=== PATIENT | female | born 1995 | race Hispanic/Latino ===

== ENCOUNTER 2018-04-21 22:55 | Emergency (ER) | payer BC ==
[2018-04-21] MEDS ORDERED: NA CHLORIDE 0.9% 1,000 ML ONE (23:24)
[2018-04-22 00:02] LABS: Absolute Lymphocytes (CBC) 2.9 K/uL (0.7-4.9); Absolute Monocytes 0.8 K/uL (0.1-1.3); Absolute Neutrophil 12.7 K/uL (1.8-8.0); Basophils % 0.6 % (0-1.3); Eosinophils % 0.5 % (0-4.4); Hematocrit 35.2 % (36.0-45.0); Lymphocytes % 17.4 % (15.3-44.8); MCH 27.3 pg (27.0-35.0); MCV 83.2 fL (80-100); MPV 8.5 fL (7.6-11.3); Monocytes % 4.6 % (3.3-12.3); RBC Red Blood Cell Count 4.24 M/uL (3.86-4.86)
[2018-04-22 00:22] LABS: BUN Blood Urea Nitrogen 4 mg/dL (7-18); Bicarbonate 22 mmol/L (21-32); Glucose Level 96 mg/dL (74-106); Potassium 3.4 mmol/L (3.5-5.1); Sodium Level 146 mmol/L (136-145)
[2018-04-22 00:24] LABS: Urine Blood TRACE (NEG); Urine Glucose NEGATIVE (NEG); Urine Protein NEGATIVE (NEG)
[2018-04-22] MEDS ORDERED: ROCURONIUM 50 MG/5 ML VIAL IV ONE (00:46)
[2018-04-22] MEDS ORDERED: NITROFURAN MACRO 100 MG CAP PO ONE (00:48)
[2018-04-22 01:03] LABS: HCG, Quantitative 7617 mIU/mL (1-3)
--- NOTE | 2018-04-22 01:12 | ER ---
Nurse's Notes [facility] Name: Edilma Ambrosio Age: 22 yrs Sex: Female : 1995 Arrival Date: 04/21/2018 Time: 22:58 Bed 13 Private MD: Diagnosis: Cystitis; related conditions, unspecified, second trimester;Hypokalemia Presentation: 04/21 23:09 Presenting complaint: Patient states: decreased movement since 2100 04/20/18. pt ak1 19 weeks and went to L\T\D, was sent back down to ER with no monitoring. pt c/o back pain. pt denies vaginal bleeding, denies any vaginal discharge. Transition of care: patient was not received from another setting of care. Onset of symptoms is unknown. 23:09 Method Of Arrival: Ambulatory ak1 04/22 00:00 Risk Assessment: Do you want to hurt yourself or someone else? Patient reports no ao desire to harm self or others. Initial Sepsis Screen: Does the patient meet any 2 criteria? No. Patient's initial sepsis screen is negative. Does the patient have a suspected source of infection? No. Patient's initial sepsis screen is negative. Care prior to arrival: None. 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 - Social history:: Smoking status: Patient/guardian denies using tobacco. - Ebola Screening: : No symptoms or risks identified at this time. - Family history:: not pertinent. Screenin/02 00:00 Abuse screen: Denies threats or abuse. Denies injuries from another. Nutritional ao screening: No deficits noted. Tuberculosis screening: No symptoms or risk factors identified. Fall Risk None identified. Assessment: 04/21 23:30 General: Appears in no apparent distress. comfortable, Behavior is calm, cooperative, ao appropriate for age. Pain: Denies pain. Neuro: Level of Consciousness is awake, alert, obeys commands, Oriented to person, place, time, situation, Appropriate for age Moves all extremities. Speech is normal, Facial symmetry appears normal. Cardiovascular: Capillary refill < 3 seconds Patient's skin is warm and dry. Respiratory: Airway is patent Respiratory effort is even, unlabored, Respiratory pattern is regular, symmetrical. GI: Abdomen is round. : No signs and/or symptoms were reported regarding the genitourinary system. EENT: No signs and/or symptoms were reported regarding the EENT system. Derm: Skin is intact, Skin is pink, warm \T\ dry. Skin temperature is warm. Musculoskeletal: No signs and/or symptoms reported regarding the musculoskeletal system. 04/22 00:22 Reassessment: Patient appears in no apparent distress at this time. Patient and/or ao family updated on plan of care and expected duration. Pain level reassessed. Patient is alert, oriented x 3, equal unlabored respirations, skin warm/dry/pink. Vital Signs: 04/21 23:11 BP 124 / 75; Pulse 107; Resp 18; Temp 98.4; Pulse Ox 99% on R/A; Weight 98.43 kg (R); ak1 Height 5 ft. 4 in. (162.56 cm) (R); Pain 6/10; 04/22 00:22 BP 118 / 72; Pulse 102; Resp 16; Pulse Ox 99% on R/A; ao 01:34 BP 122 / 74; Pulse 98; Resp 16; Pulse Ox 100% on R/A; Pain 0/10; ao 07 23:11 Body Mass Index 37.25 (98.43 kg, 162.56 cm) ak1 ED Course: 04/21 22:58 Patient arrived in ED. es 23:11 Arm band placed on Patient placed in an exam room, on a stretcher, on pulse oximetry, ak1 Patient notified of wait time. 23:13 Ryland Duarte MD is Attending Physician. mango 23:20 Fransisco Upton, JAZLYN is Primary Nurse. ao 04/22 00:01 Triage completed. ao 00:01 Patient has correct armband on for positive identification. Pulse ox on. NIBP on. ao 00:10 Inserted saline lock: 20 gauge in right antecubital area, using aseptic technique. ao Blood collected. 00:36 US OB Complete In Process Unspecified. EDMS 01:12 Adam Dexter MD is Referral Physician. mango 01:33 No provider procedures requiring assistance completed. IV discontinued, intact, ao bleeding controlled, No redness/swelling at site. Pressure dressing applied. Administered Medications: 04/21 23:58 Drug: NS 0.9% 1000 ml Route: IV; Rate: 1 bolus; Site: right antecubital; ao 04/22 01:50 Follow up: IV Status: Completed infusion; IV Intake: 1000ml ao 00:50 Drug: Rocephin - (cefTRIAXone) 1 grams Route: IVPB; Infused Over: 30 mins; Site: right ao antecubital; 01:30 Follow up: Response: No adverse reaction; IV Status: Completed infusion; IV Intake: 10mlao 00:50 Drug: Macrobid 100 mg Route: PO; ao 01:20 Follow up: Response: No adverse reaction ao Intake: 01:30 IV: 10ml; Total: 10ml. ao 01:50 IV: 1000ml; Total: 1010ml. ao Outcome: 01:12 Discharge ordered by . mango 01:33 Discharged to home ambulatory. ao 01:33 Condition: stable 01:33 Discharge instructions given to patient, Instructed on discharge instructions, follow up and referral plans. Demonstrated understanding of instructions, follow-up care, medications, Prescriptions given X 2. 01:35 Patient left the ED. ao Signatures: Dispatcher [employer] Ryland Franklin MD MD cha Salyer, Ariane Murray RN RN ak1 Fransisco Upton RN RN ao Corrections: (The following items were deleted from the chart) 04/21 23:14 23:11 LMP 12/06/2017 sonia scott
--- NOTE | 2018-04-22 01:12 | EDPHYS ---
Physician Documentation [facility] Name: Edilma Ambrosio Age: 22 yrs Sex: Female : 1995 Arrival Date: 04/21/2018 Time: 22:58 Bed 13 Private MD: ED Physician Ryland Duarte HPI: 04/22 00:42 This 22 yrs old Female presents to ER via Ambulatory with complaints of mango DECREASED MOVEMENT. 00:42 The patient presents with pelvic pain, urinary symptoms, frequency. Onset: The mango symptoms/episode began/occurred 2 day(s) ago. Modifying factors: The symptoms are alleviated by nothing, the symptoms are aggravated by nothing. Associated signs and symptoms: The patient has no apparent associated signs or symptoms. Severity of symptoms: At their worst the symptoms were mild, in the emergency department the symptoms are unchanged. The patient presents to the emergency department with elevated blood pressure. The estimated gestational age is 20 weeks. The patient is not sexually active. 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 - Social history:: Smoking status: Patient/guardian denies using tobacco. - Ebola Screening: : No symptoms or risks identified at this time. - Family history:: not pertinent. ROS: 04/22 00:42 Constitutional: Negative for fever, chills, and weight loss, Eyes: Negative for injury, mango pain, redness, and discharge, ENT: Negative for injury, pain, and discharge, Neck: Negative for injury, pain, and swelling, Cardiovascular: Negative for chest pain, palpitations, and edema, Respiratory: Negative for shortness of breath, cough, wheezing, and pleuritic chest pain, Abdomen/GI: Negative for abdominal pain, nausea, vomiting, diarrhea, and constipation, Back: Negative for injury and pain, MS/Extremity: Negative for injury and deformity, Skin: Negative for injury, rash, and discoloration, Neuro: Negative for headache, weakness, numbness, tingling, and seizure, Psych: Negative for depression, anxiety, suicide ideation, homicidal ideation, and hallucinations, Allergy/Immunology: Negative for hives, rash, and allergies, Endocrine: Negative for neck swelling, polydipsia, polyuria, polyphagia, and marked weight changes, Hematologic/Lymphatic: Negative for swollen nodes, abnormal bleeding, and unusual bruising. : Positive for urinary frequency, hematuria, burning with urination. Exam: 00:42 Constitutional: This is a well developed, well nourished patient who is awake, alert, mango and in no acute distress. Head/Face: Normocephalic, atraumatic. Eyes: Pupils equal round and reactive to light, extra-ocular motions intact. Lids and lashes normal. Conjunctiva and sclera are non-icteric and not injected. Cornea within normal limits. Periorbital areas with no swelling, redness, or edema. ENT: Nares patent. No nasal discharge, no septal abnormalities noted. Tympanic membranes are normal and external auditory canals are clear. Oropharynx with no redness, swelling, or masses, exudates, or evidence of obstruction, uvula midline. Mucous membranes moist. Neck: Trachea midline, no thyromegaly or masses palpated, and no cervical lymphadenopathy. Supple, full range of motion without nuchal rigidity, or vertebral point tenderness. No Meningismus. Chest/axilla: Normal chest wall appearance and motion. Nontender with no deformity. No lesions are appreciated. Cardiovascular: Regular rate and rhythm with a normal S1 and S2. No gallops, murmurs, or rubs. Normal PMI, no JVD. No pulse deficits. Respiratory: Lungs have equal breath sounds bilaterally, clear to auscultation and percussion. No rales, rhonchi or wheezes noted. No increased work of breathing, no retractions or nasal flaring. Back: No spinal tenderness. No costovertebral tenderness. Full range of motion. Female : Normal external genitalia. Skin: Warm, dry with normal turgor. Normal color with no rashes, no lesions, and no evidence of cellulitis. MS/ Extremity: Pulses equal, no cyanosis. Neurovascular intact. Full, normal range of motion. Neuro: Awake and alert, GCS 15, oriented to person, place, time, and situation. Cranial nerves II-XII grossly intact. Motor strength 5/5 in all extremities. Sensory grossly intact. Cerebellar exam normal. Normal gait. Psych: Awake, alert, with orientation to person, place and time. Behavior, mood, and affect are within normal limits. 00:42 Abdomen/GI: Inspection: distension, gravid appearance, Bowel sounds: normal, Palpation: abdomen is soft and non-tender, Liver: no appreciated palpable abnormalities, Hernia: not appreciated. Vital Signs: 04/21 23:11 BP 124 / 75; Pulse 107; Resp 18; Temp 98.4; Pulse Ox 99% on R/A; Weight 98.43 kg (R); ak1 Height 5 ft. 4 in. (162.56 cm) (R); Pain 6/10; 04/22 00:22 BP 118 / 72; Pulse 102; Resp 16; Pulse Ox 99% on R/A; ao 01:34 BP 122 / 74; Pulse 98; Resp 16; Pulse Ox 100% on R/A; Pain 0/10; ao 04/21 23:11 Body Mass Index 37.25 (98.43 kg, 162.56 cm) ak1 MDM: 04/21 23:13 Patient medically screened. [facility] 04/21 23:19 Order name: Quantitative Hcg [facility] 04/21 23:19 Order name: Abo/rh Typing; Complete Time: 00:40 [facility] 04/21 23:19 Order name: Basic Metabolic Panel; Complete Time: 01:03 [facility] 04/21 23:19 Order name: CBC with Diff; Complete Time: 00:40 [facility] 04/21 23:19 Order name: Urine Culture [facility] 04/21 23:19 Order name: HCG, Quantitative; Complete Time: 01:03 EDMS 04/21 23:19 Order name: Urine Test (obtain specimen); Complete Time: 23:58 [facility] 04/21 23:19 Order name: IV Saline Lock; Complete Time: 23:58 [facility] 04/22 00:18 Order name: Urine Dipstick--Ancillary (enter results); Complete Time: 00:40 eb 04/22 00:18 Order name: Urine --Ancillary (enter results); Complete Time: 00:40 eb 04/21 23:19 Order name: Labs collected and sent; Complete Time: 23:58 [facility] 04/21 23:19 Order name: NPO; Complete Time: 23:58 [facility] 04/21 23:19 Order name: Urine Dipstick-Ancillary (obtain specimen); Complete Time: 23:59 [facility] 04/22 01:04 Order name: PO challenge: juice x1; Complete Time: 01:10 mango Administered Medications: 23:58 Drug: NS 0.9% 1000 ml Route: IV; Rate: 1 bolus; Site: right antecubital; ao 04/22 01:50 Follow up: IV Status: Completed infusion; IV Intake: 1000ml ao 00:50 Drug: Rocephin - (cefTRIAXone) 1 grams Route: IVPB; Infused Over: 30 mins; Site: right ao antecubital; 01:30 Follow up: Response: No adverse reaction; IV Status: Completed infusion; IV Intake: 10mlao 00:50 Drug: Macrobid 100 mg Route: PO; ao 01:20 Follow up: Response: No adverse reaction ao Disposition: 04/22/18 01:12 Discharged to Home. Impression: Cystitis, related conditions, unspecified, second trimester, Hypokalemia. - Condition is Stable. - Discharge Instructions: Dysuria, and Urinary Tract Infection, Pelvic Rest, Second Trimester of , [id number], Hypokalemia. - Prescriptions for Vitamin 27- 0.8 mg Oral Tablet - take 1 tablet by ORAL route once daily; 60 tablet. Macrobid 100 mg Oral Capsule - take 1 capsule by ORAL route every 12 hours for 7 days; 14 capsule. - Medication Reconciliation Form, Thank You Letter, Antibiotic Education, Prescription Opioid Use form. - Follow up: Private Physician; When: 2 - 3 days; Reason: Recheck today's complaints, Continuance of care, Re-evaluation by your physician. Follow up: Adam Dexter; When: 2 - 3 days; Reason: Recheck today's complaints, Continuance of care, Re-evaluation by your physician. - Problem is new. - Symptoms have improved. Signatures: Dispatcher [employer] Ryland Franklin MD MD cha Krenek, Amber RN RN ak1 Fransisco Upton RN RN ao Corrections: (The following items were deleted from the chart) 01:12 01:12 04/22/2018 01:12 Discharged to Home. Impression: Cystitis; related mango conditions, unspecified, first trimester. Condition is Stable. Discharge Instructions: Dysuria, and Urinary Tract Infection, Pelvic Rest, Second Trimester of , [id number]. Prescriptions for Vitamin 27-0.8 mg Oral Tablet - take 1 tablet by ORAL route once daily; 60 tablet, Macrobid 100 mg Oral Capsule - take 1 capsule by ORAL route every 12 hours for 7 days; 14 capsule. and Forms are Medication Reconciliation Form, Thank You Letter, Antibiotic Education, Prescription Opioid Use. Follow up: Private Physician; When: 2 - 3 days; Reason: Recheck today's complaints, Continuance of care, Re-evaluation by your physician. Follow up: Adam Dexter; When: 2 - 3 days; Reason: Recheck today's complaints, Continuance of care, Re-evaluation by your physician. Problem is new. Symptoms have improved. mango 01:35 01:12 04/22/2018 01:12 Discharged to Home. Impression: Cystitis; related ao conditions, unspecified, second trimester; Hypokalemia. Condition is Stable. Discharge Instructions: Dysuria, and Urinary Tract Infection, Pelvic Rest, Second Trimester of , [id number]. Prescriptions for Vitamin 27-0.8 mg Oral Tablet - take 1 tablet by ORAL route once daily; 60 tablet, Macrobid 100 mg Oral Capsule - take 1 capsule by ORAL route every 12 hours for 7 days; 14 capsule. and Forms are Medication Reconciliation Form, Thank You Letter, Antibiotic Education, Prescription Opioid Use. Follow up: Private Physician; When: 2 - 3 days; Reason: Recheck today's complaints, Continuance of care, Re-evaluation by your physician. Follow up: Adam Dexter; When: 2 - 3 days; Reason: Recheck today's complaints, Continuance of care, Re-evaluation by your physician. Problem is new. Symptoms have improved. mango
[2018-04-22 01:47] VITALS: TEMP 98.4
[2018-04-22 01:49] VITALS: BP 122/74; O2SAT 100
--- NOTE | 2018-04-22 10:04 | RAD REPORT ---
EXAM DESCRIPTION: US - OB Limited - 04/22/2018 9:26 am CLINICAL HISTORY: Abdominal pain, abdominal cramping, Preliminary findings provided at the time of the study. COMPARISON: April 15 FINDINGS: A single presenting gestation is identified. Heart rate normal. No gross anatomic abnormal ities are identifiable. Amniotic fluid volume is normal. Placenta is posterior with no low-lying or placenta previa. No abrup tion. Cervical canal is 5.6 cm. Internal os is closed. No abnormality is seen along the cervical jacob l. Ovaries were not identifiable in the maternal adnexa. No free fluid or adnexal mass. IMPRESSION: 1. Single gestation with normal heart rate. No gross anatomic abnormality is seen. 2. No hematoma mass or suspicious intrauterine finding. 3. Posterior placenta shows no low-lying or placenta previa. No suspicious placental finding. 4. Amniotic fluid volume is normal.
== END 2018-04-22 01:35 | disposition home or self-care (01) ==
LOC: ER 22:55
DX: O23.12 Infections of bladder in pregnancy, second trimester (principal); E87.6 Hypokalemia; Z3A.19 19 weeks gestation of pregnancy
CPT/HCPCS: 36415; 76815; 80048; 81003; 81025; 84702; 85025; 86900; 86901; 87086; 87088; 96361; 96365; 99284; J7030

== ENCOUNTER 2018-09-03 05:55 | Inpatient (IN) | payer BC ==
[2018-09-03] MEDS ORDERED: Ringers Lactate 1,000 ML IV PRN (06:37)
[2018-09-03] MEDS ORDERED: METHYLERGONOVINE 0.2MG/ML AMP IM PRN ×2 (06:37→15:50)
[2018-09-03] MEDS ORDERED: CARBOPROST TROME 250 MCG/ML IM PRN ×2 (06:37→15:50)
[2018-09-03] MEDS ORDERED: PROMETHAZINE 25 MG/ML VIAL IV PRN (06:37)
[2018-09-03] MEDS ORDERED: BUTORPHANOL 1 MG/ML INJ IV PRN (06:37)
[2018-09-03 06:47] VITALS: BMI 42.9
[2018-09-03] MEDS ORDERED: OXYTOCIN/LR 20 UNIT/1,000 ML BAG IV SCH ×2 (07:00→16:00)
[2018-09-03] MEDS ORDERED: Ringers Lactate 1,000 ML IV SCH (07:00)
[2018-09-03 07:58] LABS: RPR Titer ND
[2018-09-03 08:00] LABS: Absolute Lymphocytes (CBC) 2.1 K/uL (0.7-4.9); Absolute Monocytes 0.6 K/uL (0.1-1.3); Absolute Neutrophil 9.7 K/uL (1.8-8.0); Basophils % 0.3 % (0-1.3); Eosinophils % 0.4 % (0-4.4); Lymphocytes % 16.5 % (15.3-44.8); MCH 29.8 pg (27.0-35.0); MCV 87.1 fL (80-100); MPV 8.2 fL (7.6-11.3); Monocytes % 4.9 % (3.3-12.3); RBC Red Blood Cell Count 4.24 M/uL (3.86-4.86)
--- NOTE | 2018-09-03 08:04 | P.PN ---
Date of Service: 09/03/18 FSE applied, clear fluid noted, cx 1cm, 50%, minus 2 station.
--- NOTE | 2018-09-03 08:41 | PREOPHP ---
Date of Admission: 09/03/2018 History: Ms. Ambrosio is a 22-year-old single female, 2, para 1-0-0-1, now at appro ximately 39 weeks gestation. She has been followed by me during this with a mildly abnorma l Pap and mild anemia. She would like to be induced. Infant has been active. She denies any other complaints. Past Medical History: Please see record. Family History: Please see record. Review of Systems: She reports no recent cough, cold, fever, chills. No recent nausea or vomiting. She denies any janine st lumps or breast knots. She denies any bowel or bladder issues. Infant has been active. Physical Examination: General: Obese female, in no apparent distress. Neck: Supple without adenopathy or thyromegaly. Lungs: Clear. Cardiac Exam: Regular rate and rhythm without murmurs. Breasts: Not examined. Abdomen: Estimated weight is 7+ pounds. Pelvic: Cervix noted to be 1 cm, 50%, vertex presentation, and -1 to -2 station. Extremities: No cyanosis, clubbing, or edema. Impression: Thirty-nine week . Plan: The patient will be induced tomorrow. YURY/MERARI Voice ID: [id number]
[2018-09-03] MEDS ORDERED: FENTANYL CITR 100 MCG/2 ML IV ONE (09:19)
[2018-09-03] MEDS ORDERED: BUPIVACAINE 0.25% PF 30 ML VIAL IV ONE (10:01)
[2018-09-03] MEDS ORDERED: BUPIVACAINE 0.25% PF 10 ML VIAL ONE (10:15)
[2018-09-03] MEDS ORDERED: FENTANYL/BUPIVACAINE/NS/PF 200 MCG/100 ML BAG EP ONE (10:17)
[2018-09-03] MEDS ORDERED: ROPIVACAINE HCL 100 ML IV ONE (11:35)
[2018-09-03 12:16] LABS: Urine Appearance CLOUDY; Urine Bilirubin NEGATIVE (NEG); Urine Blood 2+ (NEG); Urine Color YELLOW; Urine Glucose NEGATIVE (NEG); Urine Protein NEGATIVE (NEG); Urine Specific Gravity 1.015 (1.005-1.030); Urine Urobilinogen 0.2 mg/dL (0.2-1.0); Urine pH 6.5 (5.0-7.0)
[2018-09-03 12:24] LABS: Urine Microscopic Reflex ORDER UMIC
[2018-09-03 12:32] LABS: Urine Bacteria >50 /HPF (<20); Urine Culture Reflex Order NOT NEEDED; Urine Mucus MOD /HPF (NONE SEEN)
[2018-09-03] MEDS ORDERED: LIDOCAINE 1% MPF 30 ML VIAL SQ ONE (14:20)
[2018-09-03] MEDS ORDERED: METHYLERGONOVINE 0.2 MG TAB PO PRN (15:50)
--- NOTE | 2018-09-03 15:52 | P.BOP ---
Preoperative diagnosis: 39 week Postoperative diagnosis: same Primary procedure: SCVD viable female infant Estimated blood loss: <300ml Anesthesia: epdidural Complications: None Transferred to: Other (274) Condition: Good
[2018-09-03] MEDS: IBUPROFEN 200 MG TAB PO PRN (18:43)
[2018-09-03 19:40] LABS: RPR (Rapid Plasma Reagin) NON-REACT (NON-REACT)
[2018-09-03] MEDS: ACETAMINOPHEN 500 MG TAB PO PRN (19:45)
[2018-09-04] MEDS: IBUPROFEN 200 MG TAB PO PRN ×2 (00:19→07:24)
[2018-09-04] MEDS: ACETAMINOPHEN 500 MG TAB PO PRN (03:52)
[2018-09-04 16:01] VITALS: BP 123/71; TEMP 97.9
--- NOTE | 2018-09-04 18:00 | HP ---
Date of Admission: 09/03/2018 History Of Present Illness: Ms. Ambrosio is a 22-year-old, single, female, 2, para 1-0-0-1, at 39 weeks gestation, admitted for induction of labor. She was 1 cm, 50% effaced on admiss ion. scalp electrode placed, accomplishing rupture of membrane. She had a first stage of labo r of 8 hours and 21 minute, second stage of labor of 15 minutes. She delivered with by spontaneous c ontrolled vaginal delivery, a 7 pounds 3 ounce female , 8, 9, over intact perineum with e pidural anesthesia. The was delivered after delayed cord clamping. The cord was clamped, cut , and the infant placed on mother's upper abdomen. Cord blood was obtained. Placenta was spontaneou sly expelled and appeared to be intact. Intrauterine examination revealed no retained placental frag ments. No lacerations were noted. The patient delivered without difficulty. YURY/MERARI Voice ID: [id number]
--- NOTE | 2018-09-04 18:00 | DS ---
Date of Discharge: 09/04/2018 Final Hospital Discharge Diagnoses: 39 week , delivered. Complications: None. Procedures: Artificial rupture of membranes, Pitocin induction of labor, placement of epidural emely ter, spontaneous controlled vaginal delivery of viable female infant. Hospital Course: The patient is a 22-year-old, single, female, 2, para 1-0-0-1, at 39 weeks gestation, who underwent elective induction. She delivered 7 pounds 3 ounce female, 8 , 9 with epidural anesthesia. She was dismissed on her first post day, ambulatory, on a selec t diet with routine post vaginal delivery activity restrictions. Lab work include admission hemoglob in and hematocrit of 12.7 and 37.0, dismissal hematocrit of 34.1. She is Rh-positive blood type. An tibody screen negative. She was dismissed to continue taking her iron and vitamins with usu al post vaginal delivery activity restrictions. YURY/MERARI Voice ID: [id number] Report ID: [id number]
[2018-09-06 19:03] LABS: HBsAG Nonreactive (Nonreactive)
== END 2018-09-04 17:30 | disposition home or self-care (01) | DRG 807 ==
LOC: 2ND-WC 05:55
PROVIDERS: ADMIT Specialist; ATTEND Specialist
PROC: 10E0XZZ Delivery of Products of Conception, External Approach (ICD-10-PCS; principal; 2018-09-03)
PROC: 3E033VJ Introduction of Other Hormone into Peripheral Vein, Percutaneous Approach (ICD-10-PCS; 2018-09-03)
PROC: 10907ZC Drainage of Amniotic Fluid, Therapeutic from Products of Conception, Via Natural or Artificial Opening (ICD-10-PCS; 2018-09-03)
PROC: 4A1H7CZ Monitoring of Products of Conception, Cardiac Rate, Via Natural or Artificial Opening (ICD-10-PCS; 2018-09-03)
PROC: 10H073Z Insertion of Monitoring Electrode into Products of Conception, Via Natural or Artificial Opening (ICD-10-PCS; 2018-09-03)
DX: O99.02 Anemia complicating childbirth (principal); Z37.0 Single live birth; D64.9 Anemia, unspecified; Z3A.39 39 weeks gestation of pregnancy
CPT/HCPCS: 36415; 81003; 81015; 85014; 85025; 86592; 86850; 86900; 86901; 87340; J2210; J2590; J2795; J3010

== ENCOUNTER 2021-08-29 14:09 | Emergency (ER) | payer BC, OTHER ==
[2021-08-29 14:35] LABS: Urine Blood Negative (Negative); Urine Glucose Negative (Negative); Urine Protein Negative (Negative); Urine Specific Gravity >=1.030 (1.005-1.030); Urine pH 5.5 (5.0-7.0)
[2021-08-29 14:39] LABS: Urine Specific Gravity/Preg >1.030 (1.005-1.030)
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
[2021-08-29] MEDS ORDERED: HYDROCODONE/APAP 7.5/325 MG TAB ONE (15:04)
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
[2021-08-29 15:24] VITALS: BP 119/72; TEMP 98; O2SAT 98
== END 2021-08-29 15:13 | disposition home or self-care (01) ==
LOC: ER 14:09
DX: M54.50 Low back pain, unspecified (principal); V49.40XA Driver injured in collision with unspecified motor vehicles in traffic accident, initial encounter
CPT/HCPCS: 72131; 81003; 81025; 99283

== ENCOUNTER 2022-02-21 03:28 | Observation (INO) | payer BC, SELFPAY ==
[2022-02-21] MEDS ORDERED: ASPIRIN 81 MG CHEWABLE TABLET ONE (03:57)
[2022-02-21] MEDS ORDERED: NA CHLORIDE 0.9% 1,000 ML ONE (03:57)
[2022-02-21 04:26] LABS: Absolute Lymphocytes (CBC) 3.6 K/uL (0.7-4.9); Hematocrit 33.9 % (36.0-45.0); Lymphocytes % 24.7 % (15.3-44.8); MPV 7.8 fL (7.6-11.3); RBC Red Blood Cell Count 4.04 M/uL (3.86-4.86)
[2022-02-21 04:37] LABS: ALT/SGPT 22 U/L (12-78); AST/SGOT 8 U/L (15-37); Alkaline Phosphatase 77 U/L (45-117); BUN Blood Urea Nitrogen 10 mg/dL (7-18); Bicarbonate 23 mmol/L (21-32); Bilirubin Total 0.1 mg/dL (0.2-1.0); Glucose Level 100 mg/dL (74-106); Lipase 41 U/L (73-393); Magnesium 1.9 mg/dL (1.8-2.4); NT PRO-BNP 85 pg/mL (<125); Potassium 3.7 mmol/L (3.5-5.1); Protein, Total 7.2 g/dL (6.4-8.2); Sodium Level 137 mmol/L (136-145); Troponin High Sensitivity 8.9 pg/mL (<58.9)
[2022-02-21 04:42] LABS: Bilirubin Direct < 0.1 mg/dL (0-0.2)
[2022-02-21 06:10] LABS: Urine Blood Negative (Negative); Urine Glucose Negative (Negative); Urine Protein Negative (Negative); Urine Specific Gravity 1.015 (1.005-1.030)
[2022-02-21 06:35] LABS: Urine Specific Gravity/Preg 1.015 (1.005-1.030)
--- NOTE | 2022-02-21 06:40 | ER ---
Nurse's Notes [facility] Name: Edilma Eng Age: 26 yrs Sex: Female : 1995 Arrival Date: 02/21/2022 Time: 03:30 Bed 5 Private MD: Diagnosis: Chest pain, unspecified;Chest pain on breathing;Pulmonary embolism without acute cor pulmonale Presentation: 02/21 03:44 Chief complaint: Patient states: "I am having chest pain and its just getting worse. It as6 started about 3 yesterday afternoon" pt says chest pain started in back and radiates to chest, pt says its a pressure and has no other symptoms. Coronavirus screen: At this time, the client does not indicate any symptoms associated with coronavirus-19. Ebola Screen: No symptoms or risks identified at this time. Initial Sepsis Screen: Does the patient meet any 2 criteria? No. Patient's initial sepsis screen is negative. Does the patient have a suspected source of infection? No. Patient's initial sepsis screen is negative. Risk Assessment: Do you want to hurt yourself or someone else? Patient reports no desire to harm self or others. Onset of symptoms was February 20, 2022 at 15:00. 03:44 Method Of Arrival: Ambulatory as6 03:44 Acuity: ENZO 3 as6 Triage Assessment: 03:50 General: Appears in no apparent distress. Behavior is calm, cooperative. Pain: as6 Complains of pain in chest Pain radiates to back Quality of pain is described as pressure. Neuro: Level of Consciousness is awake, alert, obeys commands, Oriented to person, place, time, situation. Cardiovascular: Reports chest pain, JVD is absent Patient's skin is warm and dry. Respiratory: Respiratory effort is even, unlabored, Respiratory pattern is regular, symmetrical. 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 - Social history:: Smoking status: Patient denies any tobacco usage or history of. Patient uses alcohol, occasionally. - Family history:: not pertinent. Screenin:50 Abuse screen: Denies threats or abuse. Denies injuries from another. Nutritional as6 screening: No deficits noted. Tuberculosis screening: No symptoms or risk factors identified. Fall Risk None identified. Assessment: 03:54 Reassessment: urine specimen cup at bedside, patient educated on the need for a sample. al4 04:04 Pain: Pain began 1 day ago. as6 06:10 Reassessment: Patient appears in no apparent distress at this time. Patient is alert, al4 oriented x 3, equal unlabored respirations, skin warm/dry/pink. 06:14 Reassessment: Patient and/or family updated on plan of care and expected duration. Pain as6 level reassessed. Patient states symptoms have improved. 07:15 General: Appears in no apparent distress. comfortable, Behavior is calm, cooperative. vg1 Pain: Denies pain. Neuro: [place] Agitation-Sedation Scale (RASS): 0 - Alert and Calm Level of Consciousness is awake, alert, obeys commands, Oriented to person, place, time, situation. Cardiovascular: Patient's skin is warm and dry. Respiratory: Airway is patent Respiratory effort is even, unlabored, Breath sounds are clear bilaterally. GI: No signs and/or symptoms were reported involving the gastrointestinal system. : No signs and/or symptoms were reported regarding the genitourinary system. EENT: No signs and/or symptoms were reported regarding the EENT system. Derm: Skin is intact, is healthy with good turgor. Musculoskeletal: Circulation, motion, and sensation intact. Vital Signs: 03:44 BP 131 / 80; Pulse 81 MON; Resp 17 S; Temp 98.5(O); Pulse Ox 98% on R/A; Weight 99.79 as6 kg (R); Height 5 ft. 3 in. (160.02 cm) (R); Pain 7/10; 05:00 BP 123 / 87; Pulse 75; Resp 17 S; Pulse Ox 100% on R/A; as6 06:15 BP 124 / 75; Pulse 77; Resp 22 S; Pulse Ox 100% on R/A; as6 07:00 BP 131 / 70; Pulse 68; Resp 16; Pulse Ox 100% on R/A; vg1 08:00 BP 115 / 91; Pulse 85; Resp 16; Pulse Ox 100% ; vg1 03:44 Body Mass Index 38.97 (99.79 kg, 160.02 cm) as6 ED Course: 03:30 Patient arrived in ED. kz 03:36 Ryland Duarte MD is Attending Physician. mango 03:40 John Odom, JAZLYN is Primary Nurse. as6 03:49 Triage completed. as6 03:49 Arm band placed on. EKG completed in triage. Results shown to MD. as6 03:51 Patient maintains SpO2 saturation greater than 95% on room air. as6 03:54 Placed in gown. Bed in low position. Call light in reach. Side rails up X 1. Adult w/ al4 patient. environmental monitoring technician on. Pulse ox on. NIBP on. 03:59 XRAY Chest (1 view) In Process Unspecified. EDMS 04:05 Inserted saline lock: 22 gauge in left antecubital area, using aseptic technique. Blood al4 collected. 04:10 Basic Metabolic Panel Sent. al4 04:10 CBC with Diff Sent. al4 04:10 D-Dimer Sent. al4 04:11 LFT's Sent. al4 04:11 Magnesium Sent. al4 04:11 NT PRO-BNP Sent. al4 04:11 Troponin HS Sent. al4 05:13 US Extremity Venous W Compression Prudencio In Process Unspecified. EDMS 05:49 CT Chest For PE Angio In Process Unspecified. EDMS 06:38 Kristin Díaz MD is Hospitalizing Provider. mango 08:00 No provider procedures requiring assistance completed. Patient admitted, IV remains in vg1 place. Administered Medications: 03:53 Drug: Aspirin Chewable Tablet 81 mg Route: PO; al4 04:53 Follow up: Response: No adverse reaction al4 04:07 Drug: NS 0.9% 1000 ml Route: IV; Rate: 1 bolus; Site: left antecubital; al4 08:07 Drug: Lovenox (enoxaparin) 100 mg Route: Sub-Q; Site: right lower abdomen; vg1 11:26 Follow up: Response: No adverse reaction vg1 Outcome: 06:40 Decision to Hospitalize by Provider. mango 08:00 Admitted to ER Hold. Please see [facility] for further documentation. vg1 08:00 Condition: good 08:00 Instructed on the need for admit. 16:23 Patient left the ED. ss Signatures: Dispatcher [employer] EDMS Ryland Duarte MD MD cha Smirch, Shelby, RN RN Kristi Magana RN RN vg1 John Odom RN RN as6 Miguel Estrada Kelly kz
--- NOTE | 2022-02-21 06:40 | EDPHYS ---
Physician Documentation [facility] Name: Edilma Eng Age: 26 yrs Sex: Female : 1995 Arrival Date: 02/21/2022 Time: 03:30 Bed 5 Private MD: ED Physician Ryland Duarte HPI: 02/21 04:23 This 26 yrs old Female presents to ER via Ambulatory with complaints of Chest mango Pain. 04:23 The patient or guardian reports chest pain that is located primarily in the substernal mango area. The pain does not radiate. Associated signs and symptoms: The patient has no apparent associated signs or symptoms. The chest pain is described as a pressure. Duration: The patient or guardian reports multiple episodes, that wax and wane. Modifying factors: The symptoms are alleviated by nothing. the symptoms are aggravated by nothing. Severity of pain: At its worst the pain was moderate in the emergency department the pain has improved moderately. The patient has not experienced similar symptoms in the past. 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 - Social history:: Smoking status: Patient denies any tobacco usage or history of. Patient uses alcohol, occasionally. - Family history:: not pertinent. ROS: 04:23 Constitutional: Negative for fever, chills, and weight loss, Eyes: Negative for injury, mango pain, redness, and discharge, ENT: Negative for injury, pain, and discharge, Neck: Negative for injury, pain, and swelling, Respiratory: Negative for shortness of breath, cough, wheezing, and pleuritic chest pain, Abdomen/GI: Negative for abdominal pain, nausea, vomiting, diarrhea, and constipation, Back: Negative for injury and pain, : Negative for injury, bleeding, discharge, and swelling, MS/Extremity: Negative for injury and deformity, Skin: Negative for injury, rash, and discoloration, Neuro: Negative for headache, weakness, numbness, tingling, and seizure, Psych: Negative for depression, anxiety, suicide ideation, homicidal ideation, and hallucinations, Allergy/Immunology: Negative for hives, rash, and allergies, Endocrine: Negative for neck swelling, polydipsia, polyuria, polyphagia, and marked weight changes, Hematologic/Lymphatic: Negative for swollen nodes, abnormal bleeding, and unusual bruising. 04:23 Cardiovascular: Positive for chest pain, of the chest. Exam: 04:23 Constitutional: This is a well developed, well nourished patient who is awake, alert, mango and in no acute distress. Head/Face: Normocephalic, atraumatic. Eyes: Pupils equal round and reactive to light, extra-ocular motions intact. Lids and lashes normal. Conjunctiva and sclera are non-icteric and not injected. Cornea within normal limits. Periorbital areas with no swelling, redness, or edema. ENT: Nares patent. No nasal discharge, no septal abnormalities noted. Tympanic membranes are normal and external auditory canals are clear. Oropharynx with no redness, swelling, or masses, exudates, or evidence of obstruction, uvula midline. Mucous membranes moist. Neck: Trachea midline, no thyromegaly or masses palpated, and no cervical lymphadenopathy. Supple, full range of motion without nuchal rigidity, or vertebral point tenderness. No Meningismus. Chest/axilla: Normal chest wall appearance and motion. Nontender with no deformity. No lesions are appreciated. Cardiovascular: Regular rate and rhythm with a normal S1 and S2. No gallops, murmurs, or rubs. Normal PMI, no JVD. No pulse deficits. Respiratory: Lungs have equal breath sounds bilaterally, clear to auscultation and percussion. No rales, rhonchi or wheezes noted. No increased work of breathing, no retractions or nasal flaring. Abdomen/GI: Soft, non-tender, with normal bowel sounds. No distension or tympany. No guarding or rebound. No evidence of tenderness throughout. Back: No spinal tenderness. No costovertebral tenderness. Full range of motion. Skin: Warm, dry with normal turgor. Normal color with no rashes, no lesions, and no evidence of cellulitis. MS/ Extremity: Pulses equal, no cyanosis. Neurovascular intact. Full, normal range of motion. Neuro: Awake and alert, GCS 15, oriented to person, place, time, and situation. Cranial nerves II-XII grossly intact. Motor strength 5/5 in all extremities. Sensory grossly intact. Cerebellar exam normal. Normal gait. Psych: Awake, alert, with orientation to person, place and time. Behavior, mood, and affect are within normal limits. 04:23 Musculoskeletal/extremity: ROM: full active range of motion, full passive range of motion, Circulation is intact in all extremities. Sensation intact. Compartment Syndrome exam of affected extremity: is normal. Joints: All joints appear normal with full range of motion. Weight bearing: able to fully bear weight, without difficulty, DVT Exam: No signs of deep vein thrombosis. no pain, no swelling, no tenderness, negative Homans' sign noted on exam, no appreciated bluish discoloration, no erythema, no increased warmth. 04:30 ECG was reviewed by the Attending Physician. mango Vital Signs: 03:44 BP 131 / 80; Pulse 81 MON; Resp 17 S; Temp 98.5(O); Pulse Ox 98% on R/A; Weight 99.79 as6 kg (R); Height 5 ft. 3 in. (160.02 cm) (R); Pain 7/10; 05:00 BP 123 / 87; Pulse 75; Resp 17 S; Pulse Ox 100% on R/A; as6 06:15 BP 124 / 75; Pulse 77; Resp 22 S; Pulse Ox 100% on R/A; as6 07:00 BP 131 / 70; Pulse 68; Resp 16; Pulse Ox 100% on R/A; vg1 08:00 BP 115 / 91; Pulse 85; Resp 16; Pulse Ox 100% ; vg1 03:44 Body Mass Index 38.97 (99.79 kg, 160.02 cm) as6 MDM: 03:38 Patient medically screened. mango 04:26 Differential diagnosis: abnormal EKG, acute myocardial infarction, acute pericarditis, mango chest wall pain, cholecystitis, Cholelithiasis hiatal hernia, pancreatitis, pneumonia, pulmonary embolus, stable angina, unstable angina. HEART Score: History: Slightly Suspicious (0), ECG: Normal (0), Age: < or = 45 years (0), Risk Factors: 1 or 2 risk factors (1), [+ Family HX] [Obesity] Troponin: < or = 1 x Normal Limit (0). The patient's deep vein thrombosis risk score was calculated as follows: Total Score: 0. This patient was found to be at low risk for a deep vein thrombosis by using the Well's assessment criteria. The patient's pulmonary embolism risk score was calculated as follows: Total Score: 0-2 points. This patient was found to be at low risk for a pulmonary embolism by using the Well's assessment criteria. DEBBIE Risk Score: TOTAL SCORE = 0. Data reviewed: vital signs, nurses notes, lab test result(s), EKG, radiologic studies, plain films. 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 Test interpretation: by ED physician or midlevel provider: ECG, plain radiologic studies. Counseling: I had a detailed discussion with the patient and/or guardian regarding: the historical points, exam findings, and any diagnostic results supporting the discharge/admit diagnosis, the presence of at least one elevated blood pressure reading (>120/80) during this emergency department visit, lab results, radiology results. 02/21 03:38 Order name: Basic Metabolic Panel; Complete Time: 04:45 [facility] 02/21 03:38 Order name: CBC with Diff; Complete Time: 04:45 mango 02/21 03:38 Order name: D-Dimer; Complete Time: 04:45 02/21 03:38 Order name: LFT's; Complete Time: 04:45 mango 02/21 03:38 Order name: Magnesium; Complete Time: 04:45 mango 02/21 03:38 Order name: NT PRO-BNP; Complete Time: 04:45 mango 02/21 03:38 Order name: Troponin HS; Complete Time: 04:45 [facility] 02/21 03:38 Order name: XRAY Chest (1 view) mango 02/21 03:38 Order name: Lipase; Complete Time: 04:45 mango 02/21 04:30 Order name: US Extremity Venous W Compression Prudencio 02/21 04:30 Order name: CT Chest For PE Angio [facility] 02/21 06:10 Order name: Urine --Ancillary (enter results); Complete Time: 06:37 mw2 02/21 06:10 Order name: Urine Dipstick-Ancillary; Complete Time: 06:37 EDMS 02/21 06:41 Order name: COVID-19/FLU A+B (Document "Date of Onset" if Symptomatic); Complete Time: as6 07:58 02/21 03:38 Order name: EKG; Complete Time: 03:39 [facility] 02/21 03:38 Order name: Cardiac monitoring; Complete Time: 03:44 [facility] 02/21 03:38 Order name: EKG - Nurse/Tech; Complete Time: 03:44 [facility] 02/21 03:38 Order name: IV Saline Lock; Complete Time: 04:10 [facility] 02/21 03:38 Order name: Labs collected and sent; Complete Time: 04:10 [facility] 02/21 03:38 Order name: O2 Per Protocol; Complete Time: 03:44 [facility] 02/21 03:38 Order name: O2 Sat Monitoring; Complete Time: 03:44 [facility] 02/21 03:38 Order name: Urine Dipstick-Ancillary (obtain specimen); Complete Time: 06:10 [facility] 02/21 03:38 Order name: Urine Test (obtain specimen); Complete Time: 06:10 [facility] 02/21 06:42 Order name: Vent Perfusion VQ Scan EDMS 02/21 07:09 Order name: Regular EDMS EC:30 Rate is 81 beats/min. Rhythm is regular. QRS [place] is Normal. NC interval is normal. QRS mango interval is normal. QT interval is normal. No Q waves. T waves are Normal. No ST changes noted. Clinical impression: Normal ECG and No evidence of ischemia. Interpreted by me. Reviewed by me. Administered Medications: 03:53 Drug: Aspirin Chewable Tablet 81 mg Route: PO; al4 04:53 Follow up: Response: No adverse reaction al4 04:07 Drug: NS 0.9% 1000 ml Route: IV; Rate: 1 bolus; Site: left antecubital; al4 08:07 Drug: Lovenox (enoxaparin) 100 mg Route: Sub-Q; Site: right lower abdomen; vg1 11:26 Follow up: Response: No adverse reaction vg1 Disposition Summary: 02/21/22 06:40 Hospitalization Ordered Hospitalization Status: Observation mango Provider: Kristin Díaz mango Condition: Stable mango Problem: new mango Symptoms: have improved mango Bed/Room Type: Standard mango Location: [facility] ER HOLD(02/21/22 15:06) Room Assignment: ERHOLD-(02/21/22 15:06) ss Diagnosis - Chest pain, unspecified mango - Chest pain on breathing mango - Pulmonary embolism without acute cor pulmonale mango Discharge Instructions: - Discharge Summary Sheet mango - Nonspecific Chest Pain, Adult mango - Nonspecific Chest Pain, Adult, [id number] mango - Aspirin and Your Heart mango Forms: - Medication Reconciliation Form mango - SBAR form mango - Work release form ss Prescriptions: - Pepcid 20 mg Oral Tablet - take 1 tablet by ORAL route every 12 hours for 10 days; 20 tablet; Refills: 0, mango Product Selection Permitted Signatures: Dispatcher [employer] Fiordaliza Wadr Corey, MD MD cha Nieto, Roman, MD MD rn Smirch, Shelby, RN RN Kristi Magana RN RN vg1 John Odom RN RN as6 Miguel Estrada Corrections: (The following items were deleted from the chart) 10:50 06:40 [facility] 15:06 06:40 Telemetry/MedSurg (observation) [facility] 15:06 10:50 405 bd ss
[2022-02-21] MEDS ORDERED: ONDANSETRON 4 MG/2 ML VIAL IV PRN (07:00)
[2022-02-21] MEDS ORDERED: MORPHINE 2 MG/ML SYR IV PRN (07:00)
[2022-02-21] MEDS ORDERED: ACETAMINOPHEN 500 MG TAB PO PRN (07:00)
[2022-02-21 07:38] LABS: SARS-COV-2 RT PCR NEGATIVE (NEGATIVE)
[2022-02-21] MEDS ORDERED: ENOXAPARIN 100 MG/ML SYR SQ ONE (07:58)
--- NOTE | 2022-02-21 10:50 | EKG ---
Test Date: 2022-02-21 Test Time: 03:39:05 Lead Teller: KIKA MEASUREMENT RESULTS: Intervals: Rate: 81 MD: 160 QRSD: 80 QT: 392 QTc: 455 [place]: P: 44 MD: 160 QRS: 52 T: 31 INTERPRETIVE STATEMENTS: Normal sinus rhythm Normal ECG No previous ECG available for comparison Electronically Signed On 02-21-22 10:49:12 CDT by Abilio Timmons
[2022-02-21 11:17] VITALS: BMI 38.9
--- NOTE | 2022-02-21 11:53 | RAD REPORT ---
EXAM DESCRIPTION: NM - Vent Perfusion VQ Scan - 02/21/2022 11:47 am CLINICAL HISTORY: chest pain, shortness of breath COMPARISON: No comparisons TECHNIQUE: 21.7mCi Xe-133 gas inhaled and 6.4mCi Tc-MAA IV. Planar ventilation scan was performed in posterior projection after Xe-133 gas inhalation (wash-in, e quilibrium, and wash-out phases) followed by perfusion scan with Tc-MAA IV in multiple projections. Examination is correlated with recent chest radiograph. FINDINGS: Normal ventilation with appropriate wash-out and no significant air-trapping. No mismatched segmental perfusion defect. IMPRESSION: Very low probability of acute pulmonary embolism.
[2022-02-21 13:35] VITALS: BP 108/52; TEMP 98.3
--- NOTE | 2022-02-21 13:44 | P.SSS ---
Patient History Date of Service: 02/21/22 Reason for admission: Chest pain rule out acute coronary syndrome History of Present Illness: Patient is a 26-year-old female came to the hospital with chest pain. Pain was mainly the sternal region. There was no radiation. She had multiple diagnostic studies performed in the emergency room with no significant abnormalities except for questionable PE on CT PE protocol but there was a lot of artifact. We went ahead and get a VQ scan that was unremarkable. Clinically patient is doing well and is stable for discharge. Allergies No Known Allergies Allergy (Verified 09/03/18 06:49) - Past Medical/Surgical History Diabetic: No Past Medical History: Patient denies medical history Past Surgical History: Patient denies surgical history - Family History Father -: Diabetes - Social History Smoking Status: Never smoker Alcohol use: Yes CD- Drugs: No Caffeine use: Yes Place of Residence: Home Review of Systems 10-point ROS is otherwise unremarkable Physical Examination - Vital Signs Temperature: 98.3 F Blood Pressure: 108/52 Pulse: 80 Respirations: 14 Pulse Ox (%): 100 - Physical Exam General: Alert, In no apparent distress, Oriented x3 HEENT: Atraumatic, PERRLA, Mucous membr. moist/pink, EOMI, Sclerae nonicteric Neck: Supple, 2+ carotid pulse no bruit, No LAD, Without JVD or thyroid abnormality Respiratory: Clear to auscultation bilaterally, Normal air movement Cardiovascular: Regular rate/rhythm, Normal S1 S2 Gastrointestinal: Normal bowel sounds, No tenderness Musculoskeletal: No tenderness Integumentary: No rashes Neurological: Normal gait, Normal speech, Normal strength at 5/5 x4 extr, Normal tone, Normal affect Lymphatics: No axilla or inguinal lymphadenopathy - Studies Laboratory Data (last 24 hrs) 02/21/22 04:07: WBC 14.8 H, Hgb 11.7 L, Hct 33.9 L, Plt Count 435 H 02/21/22 04:07: Sodium 137, Potassium 3.7, BUN 10, Creatinine 0.55, Glucose 100, Magnesium 1.9, Total Bilirubin 0.1 L, AST 8 L, ALT 22, Alkaline Phosphatase 77, Lipase 41 L Treatment Summary: Patient is doing well and VQ scan is negative. We will continue with antibiotics and steroids at discharge. At this time, patient is stable for discharge home. - Disposition Disposition: ROUTINE DISCHARGE Condition: GOOD Diet: AHA Activity: Fall precautions Critical Care: No Time Spent Managing Pts Care (In Minutes): 40
[2022-02-21 18:20] VITALS: O2SAT 100
--- NOTE | 2022-02-21 20:06 | RAD REPORT ---
EXAM DESCRIPTION: Extrem Venous W Compress Prudencio US Bilateral Lower Extremity Venous Duplex Doppler CLINICAL HISTORY: Pain . COMPARISON: None. TECHNIQUE: Grayscale, color Doppler, duplex Doppler, spectral Doppler images and analysis with compr ession and augmentation of right and left lower extremity veins. FINDINGS: Right and Left common femoral, greater saphenous, femoral, deep (profunda) femoral, poplit eal, posterior tibial veins unremarkable without evidence of clot. IMPRESSION: No sonographic evidence of right or left lower extremity DVT. Electronically signed by: Mauro Zaldivar MD 02/21/2022 5:29 AM CDT Due to temporary technical issues with the PACS/Fluency reporting system, reports are being signed by the in house radiologists without review as a courtesy to insure prompt reporting. The interpreting radiologist is fully responsible for the content of the report.
--- NOTE | 2022-02-21 20:19 | RAD REPORT ---
EXAM DESCRIPTION: Chest Single View CLINICAL HISTORY: CHEST PAIN COMPARISON: None. FINDINGS: Single frontal radiograph view of the chest. Cardiomediastinal silhouette: Normal size and contour. Lungs: No consolidation, pneumothorax, or pleural effusion. Leads overlie the chest. Bones: No acute osseous abnormality. Upper abdomen: No abnormality identified. IMPRESSION: 1. No acute pulmonary process identified. Electronically signed by: Naresh De Anda 02/21/2022 5:14 AM CDT Due to temporary technical issues with the PACS/Fluency reporting system, reports are being signed by the in house radiologists without review as a courtesy to insure prompt reporting. The interpreting radiologist is fully responsible for the content of the report.
--- NOTE | 2022-02-21 20:21 | RAD REPORT ---
EXAM DESCRIPTION: ADDENDUM #1 Findings were discussed with Dr. Duarte by telephone at 6:39 AM central standard time on 02/21/2022 Electronically signed by: Albina Mayo MD 02/21/2022 6:40 AM CDT End of Addendum EXAM DESCRIPTION: CT CHEST ANGIOGRAPHY WITH IV CONTRAST TECHNIQUE: Computerized tomographic angiography of the chest was performed after the IV injection of iodinated nonionic contrast including image processing. The image data was postprocessed using 2-d imensional multiplanar reformatted (MPR) and 3-dimensional (MIP and/or volume rendered) techniques. A utomated exposure control, adjustment of mA and/or kV according to patient size, or iterative reconst ruction dose optimization techniques were utilized. CLINICAL HISTORY: Chest pain COMPARISON: None. FINDINGS: Heart and pericardium: No pericardial effusion or thickening. No CT evidence of right hear t strain Thoracic aorta: No aneurysm or dissection. Pulmonary vasculature: There is limited evaluation of the mid to distal pulmonary arterial branches d ue to streak artifact, however there is asymmetric decreased enhancement of one of the posterior righ t lower lobe pulmonary arterial branches, and embolus cannot be excluded, axial images 66 through 73 series 401.. Lymph nodes: No enlarged thoracic lymph nodes. Lungs: No infiltrate or focal pulmonary lesion is identified. Pleural space: No effusion, thickening, or pneumothorax. Musculoskeletal structures: No significant abnormality. Upper abdominal structures: No significant abnormality. IMPRESSION: Study is very limited by breathing motion artifact. This limits evaluation of the pulmon nam arteries, however pulmonary embolus is suspected within a segmental to subsegmental posterior rig ht lower lobe pulmonary arterial branches. No CT evidence of right heart strain. Electronically signed by: Albina Mayo MD 02/21/2022 6:31 AM CDT Due to temporary technical issues with the PACS/Fluency reporting system, reports are being signed by the in house radiologists without review as a courtesy to insure prompt reporting. The interpreting radiologist is fully responsible for the content of the report.
== END 2022-02-21 16:24 | disposition home or self-care (01) ==
LOC: ER 03:28 → ERHOLD 08:26 → 4TH 10:59
PROVIDERS: ADMIT Hospitalist; ATTEND Hospitalist
DX: R07.9 Chest pain, unspecified (principal); Z20.822 Contact with and (suspected) exposure to COVID-19; Z83.3 Family history of diabetes mellitus
CPT/HCPCS: 0240U; 36415; 71045; 71275; 78582; 80048; 80076; 81003; 81025; 83690; 83735; 83880; 84484; 85025; 85379; 93005; 93970; 96372; 99285; A9540; A9558; G0378; J1650; J7030; Q9967